=== PATIENT | female | born 1995 | race Caucasian/White ===

== ENCOUNTER 2022-07-01 14:36 | Emergency (ER) | payer MEDICAID, SELFPAY ==
[2022-07-01 14:48] VITALS: BP 141/94; PULSE 86; RESP 17; TEMP 36.7; O2SAT 96; BMI 43.0
--- NOTE | 2022-07-01 15:12 | W.ED.ANIMALB ---
HPI - Animal Bite General: Chief Complaint: Animal Bite Stated Complaint: Dog bite on lip Time Seen by Provider: 07/01/22 15:02 Source: patient Mode of arrival: ambulatory Limitations: no limitations History of Present Illness: Patient is a nice 27-year-old female presents to ED today with complaint of a dog bite to the left upper lip she sustained just prior to arrival after her household pet Breen dog bit her. Dog appeared well and is up-to-date on immunizations. Her tetanus is up-to-date. complaint: animal bite Onset (ago): hour(s) Animal: dog Description of animal: household pet, immunizations UTD and appeared well Mechanism: bite Location: face (lip) Context: provoked (animal eating) Associated symptoms: Reports no associated symptoms Related Data: Patient tetanus UTD: Yes Review of Systems Eyes: Denies: change in vision, blurry vision or eye discomfort ENMT: Reports: other (lip laceration/dog bite) Physical Exam Const: COMMON NORMALS: no acute distress, patient oriented x3, no limitations and alert HENMT: NOSE IMAGE: 1. dog bite/gaping laceration MOUTH: other (lac is not through and through; no intraoral injuries noted) Neuro: COMMON NORMALS: patient oriented x3 SENSORIUM/ORIENTATION: Yes alert Procedures Laceration Laceration 1: Site: lip Side (If applicable): left Size (cm): 2.0 Description: linear and involves fidencio border Depth: simple, single layer Local Anesthetic: lidocaine 2% Amount of anesthesia used (mL): 2.0 Pre-repair: wound explored and irrigated extensively Skin layer closed with: nylon and other (fast absorbing gut) Size (cm): 5-0 and 6-0 Number of sutures: 4 Technique: simple, interrupted Nerve Block Nerve Block 1: Time out performed: Yes Local Anesthetic: lidocaine 2% Amount of anesthesia used (mL): 2.0 Side: left Intraoral Nerve Block: infraorbital Procedure Successful: Yes Patient Tolerated Procedure: well Complications: none Course Vital Signs: Vital signs: Vital Signs Temperature 98.0 F 07/01/22 14:48 Pulse Rate 86 07/01/22 14:48 Respiratory Rate 17 07/01/22 14:48 Blood Pressure 141/94 07/01/22 14:48 Pulse Oximetry 96 07/01/22 14:48 Oxygen Delivery Me thod 07/01/22 14:48 MDM - Animal Bite Medical Decision Making Wound copiously irrigated. It did require closure. Patient's tetanus is up-to-date. She was given a shot of IM antibiotics prior to discharge. She has an allergy to amoxicillin she will she will need to be on dual antibiotic coverage to cover for pasteurella multocida as well as anaerobic coverage. Strict return ED precautions given in regards to infection. Wound care/care for her sutures discussed. Discharge Plan Discharge Patient Disposition: Home Clinical Impression: Dog bite Qualifiers: Encounter type: initial encounter Qualified Code(s): W54.0XXA - Bitten by dog, initial encounter Complicated laceration of lip Qualifiers: Encounter type: initial encounter Qualified Code(s): S01.511A - Laceration without foreign body of lip, initial encounter Laceration of vermilion border of upper lip Qualifiers: Encounter type: initial encounter Qualified Code(s): S01.511A - Laceration without foreign body of lip, initial encounter Condition: Stable Prescriptions: New metronidazole 500 mg tablet 500 mg PO BID 7 Days Qty: 14 0RF Bactrim DS 800-160 mg tablet 1 tab PO BID 7 Days Qty: 14 0RF Discharge Orders: Discharge ED (Routine); Ordered 07/01/22 Ordered By: Keri Hunt Patient Instructions: Animal Bite (ED), Laceration (DC) Activity Restrictions/Additional Instructions: Keep wound/laceration clean with warm soap and water twice daily. Monitor for signs of infection such as redness, swelling, increased pain, or drainage. Please seek medical re-evaluation if these occur. If you received sutures today these will need to be removed (unless you were told by the provider that they are absorbable). The provider should have discussed with you the length of time until removal-5 TO 7 DAYS. You may return to the emergency department for this service. Fill your antibiotics immediately and start them tonight. Coding Level of Care Code ED Administrative Support Coordinator for Darrion Marx
--- NOTE | 2022-07-01 15:58 | PC.CHAP ---
WOUND IRRIGATED WITH 150 ML OF NS PER PROVIDER AGGIE HART
[2022-07-01] MEDS: cefTRIAXone 1,000 MG in water for injection-sterile 2.1 ML 1 MG IM (16:36)
--- NOTE | 2022-07-01 16:41 | DCPLANNER ---
automotive finance manager seen patient due to no primary care physician - patient stated that she is going to go to [facility] and get established with Dr. Mejais
[2022-07-01 16:54] VITALS: BP 150/97; PULSE 84; RESP 16; O2SAT 97
== END 2022-07-01 16:59 | disposition home or self-care (01) ==
PROVIDERS: Emergency Provider Physician Assistant
DX: S01.511A Laceration without foreign body of lip, initial encounter (principal); W54.0XXA Bitten by dog, initial encounter
CPT/HCPCS: 12011; 96372; 99284; J0696